=== PATIENT | female | born 1945 | race Caucasian/White ===

== ENCOUNTER 2017-03-14 00:31 | Emergency (ER) | payer MEDICARE ==
[~2017-03-14] VITALS: Ht 162.6 cm; Wt 64.5 kg
[~2017-03-14 00:31] MED LIST: ALTOPREV20 MG PO; CEPHALEXIN500 MG PO; DILTIAZEM60 MG PO; HYDROCO/APAP1 T11 PO; METOPROLOL SUCC25 MG PO; PLAVIX75 MG PO; PRILOSEC40 MG PO
[2017-03-14] MEDS ORDERED: CELEXA40 M1 PO (01:24)
[2017-03-14 02:12] LABS: HEMATOCRIT 43.5 % (37.0-47.0); HEMOGLOBIN 14.7 g/dl (12.0-16.0); IMMATURE GRANULOCYTES 0.5 % (0.0-1.0); MEAN CELL VOLUME 92.2 fL CALC (80.0-100.0); MEAN CORPUSCULAR HGB 31.1 pG CALC (26.0-32.0); MEAN CORPUSCULAR HGB CONC 33.8 g/L CALC (32.0-36.0); NEUT# 10.12 thou/uL (2.00-7.15); RED BLOOD COUNT 4.72 mill/uL (4.20-5.60)
[2017-03-14 02:19] LABS: ALBUMIN 4.2 g/dL (3.2-5.0); ALKALINE PHOSPHATASE 126 u/l (38-126); ANION GAP 18 (6-22 (CALC)); BILIRUBIN, TOTAL 0.7 mg/dL (0.0-1.4); BUN 21 mg/dL (8-23); BUN/CREATININE RATIO 17 (12-20 (CALC)); CALCIUM 9.1 mg/dL (8.4-10.2); CARBON DIOXIDE 24 mmol/l (22-30); CHLORIDE 107 mmol/l (95-108); CREATININE 1.2 mg/dL (0.5-1.0); GFR 44 ML/MIN (>=60 (CALC)); GFR FOR AFR.AMER. 54 ML/MIN (>=60 (CALC)); GLUCOSE 117 mg/dL (82-115); POTASSIUM 3.1 mmol/l (3.5-5.1); PROTHROMBIN TIME 10.5 SECONDS (9.0-12.5); SGOT/AST 33 u/l (9-36); SGPT/ALT 23 u/l (11-66); SODIUM 146 mmol/l (137-146); TOTAL PROTEIN 7.8 g/dL (6.3-8.2)
[2017-03-14 02:32] LABS: MYOGLOBIN 53 ng/mL (0 - 62)
[2017-03-14 02:56] LABS: INFLUENZA A NONE DETECTED (NONE DETECT); INFLUENZA B NONE DETECTED (NONE DETECT)
--- NOTE | 2017-03-14 03:12 | NUR ---
BREATHING TREATMENT GIVEN. BREATHING TECH FOR GOOD DEPOSITION TO THE LUNGS.
[2017-03-14] MEDS ORDERED: Levaquin PO (04:59)
[2017-03-14 05:15] VITALS: BP 151/64
== END 2017-03-14 05:15 | disposition home or self-care (01) ==
LOC: ED 00:31
PROVIDERS: Emergency Medicine
DX: J44.1 Chronic obstructive pulmonary disease with (acute) exacerbation (principal); I12.9 Hypertensive chronic kidney disease with stage 1 through stage 4 chronic kidney disease, or unspecified chronic kidney disease; N18.4 Chronic kidney disease, stage 4 (severe); E78.5 Hyperlipidemia, unspecified; I25.10 Atherosclerotic heart disease of native coronary artery without angina pectoris; K21.9 Gastro-esophageal reflux disease without esophagitis; G89.29 Other chronic pain; M54.9 Dorsalgia, unspecified; F17.210 Nicotine dependence, cigarettes, uncomplicated; R06.02 Shortness of breath; R94.31 Abnormal electrocardiogram [ECG] [EKG]

== ENCOUNTER 2018-11-22 18:43 | Observation (INO) | payer MEDICARE ==
[~2018-11-22] VITALS: Ht 162.6 cm; Wt 63.7 kg
[~2018-11-22 18:43] MED LIST changes: +AMITRIPTYLIN25 MG PO; +CELEXA40 M1 PO; +CIPRO XR500 MG PO; +Levaquin PO; +PHENERGAN25 MG RE
--- NOTE | 2018-11-22 18:54 | NUR ---
TO TX ROOM VIA W/C
--- NOTE | 2018-11-22 19:13 | NUR ---
PT SEEN HERE FOR SAME COMPLAINT LAST NIGHT, STATES JUST DOESNT FEEL ANY BETTER
--- NOTE | 2018-11-22 19:15 | NUR ---
PT HAD RX FROM LAST NIGHT FOR ZOFRAN BUT DID NOT INFECTIOUS DISEASE TECHNICIAN THE RX TODAY SO HAS HAD NO ZOFRAN TODAY.
[2018-11-22 19:49] LABS: HEMATOCRIT 41.2 % (37.0-47.0); HEMOGLOBIN 13.5 g/dl (12.0-16.0); IMMATURE GRANULOCYTES 0.6 % (0.0-5.0); MEAN CELL VOLUME 95.6 fL CALC (80.0-100.0); MEAN CORPUSCULAR HGB 31.3 pG CALC (26.0-32.0); MEAN CORPUSCULAR HGB CONC 32.8 g/L CALC (32.0-36.0); NEUT# 13.99 thou/uL (2.00-7.15); RED BLOOD COUNT 4.31 mill/uL (4.20-5.60); RED CELL DISTRI WIDTH 13.8 % (11.5-15.5)
[2018-11-22 20:09] LABS: ALBUMIN 3.5 g/dL (3.2-5.0); BILIRUBIN, TOTAL 0.6 mg/dL (0.0-1.4); CREATININE 1.4 mg/dL (0.5-1.0); POTASSIUM 4.2 mmol/l (3.5-5.1); TOTAL PROTEIN 6.2 g/dL (6.3-8.2)
--- NOTE | 2018-11-22 20:14 | NUR ---
NO VOMITING SINCE ARRIVAL, WARM BLANKET GIVEN, PT RESTING QUIETLY WITH AT BEDSIDE
--- NOTE | 2018-11-22 20:37 | NUR ---
IV FLUIDS INFUSING, SMALL AMOUNT OF LIQUID VOMIT. NOTIFIED.
--- NOTE | 2018-11-22 21:48 | NUR ---
MED SURG UNABLE TO TAKE REPORT AT THIS TIME, WILL CALL BACK SOON POSSIBLE
--- NOTE | 2018-11-22 21:55 | NUR ---
DR. CANADA CALLED TO PLACE ORDERS
--- NOTE | 2018-11-22 21:55 | NUR ---
REPORT GIVEN TO MED SURG FOR CONTINUATION OF CARE.
--- NOTE | 2018-11-22 22:08 | NUR ---
REPORT GIVEN TO JEFFREY KUO
--- NOTE | 2018-11-22 22:12 | NUR ---
TO MS VIA STRETCHER
[2018-11-22 22:20] VITALS: BP 184/82
--- NOTE | 2018-11-22 22:20 | NUR ---
PT ARRIVED TO THE FLOOR VIA STRETCHER ACCOMPANIED BY ED NURSE. AIDE IS IN W/PT AT THIS TIME.
--- NOTE | 2018-11-22 22:30 | NUR ---
PT ARRIVED TO THE FLOOR ACCOMPANIED BY ED NURSE. PT WAS VOMITING GREEN EMESIS SHE ARRIVED TO THE FLOOR, MISSING THE EMESIS BAG IN HER HAND HITTING THE FLOOR OF HALLWAY AND ROOM, GOWN,LINENS. PT CLEANED AND PROVIDED CLEAN LINENS AND GOWN. PT WEIGHTED AND V/S OBTAINED, PROVIDED WET CLOTH AND ADDITIONAL EMESIS BAGS. PT VOMITED 3X JUST WE WERE ATTEMPTING GETTING HER SETTLED. WILL MEDICATE ORDERS BECOME AVAILABLE.
--- NOTE | 2018-11-23 00:18 | NUR ---
PT MEDICATED FOR NAUSEA/VOMITING AT THIS TIME AND PROVIDED MOUTH SWABS FOR COMFORT. DENIES WET WASH CLOTH AT THIS TIME. LIGHTS AND ROOM FIXED FOR PT COMFORT/REQUESTS. CALL LIGHT AT BEDSIDE AND PT REORIENTED TO IT'S USE.
[2018-11-23 01:53] VITALS: BP 176/93
--- NOTE | 2018-11-23 03:57 | NUR ---
PT MEDICATED FOR NAUSEA AT THIS TIME. PT APPEARED TO BE RESTING SOME I ENTERED THE ROOM AWOKE TO MY VOICE AND QUICKLY RETURNED TO SLEEP/EYES CLOSED.
[2018-11-23 04:24] VITALS: BP 126/67
--- NOTE | 2018-11-23 05:30 | NUR ---
PT SLEEPING SOUNDLY AT THIS TIME. WILL CONTINUE TO MONITOR. CALL LIGHT AT SIDE.
[2018-11-23 07:58] VITALS: BP 159/67
--- NOTE | 2018-11-23 07:58 | NUR ---
ASSESSMENT IS COMPLETED: IV SITE IS FREE FROM REDNESS OR EDEMA. HR IS REG,PULSES ARE STRONG X4, ABD IS SOFT WITH ACTIVE BS. BREATH SOUNDS ARE CLEAR, BILATERALLY. CONTINEU TO OSBERVE AND MONITOR.
--- NOTE | 2018-11-23 12:10 | NUR ---
PT HAS BEEN VOMITING APPROX 30 TO 50 CC OF BILE CONTINUE TO OBSERVE AND MONITOR.
--- NOTE | 2018-11-23 13:00 | NUR ---
IN TO VISIT WITH PT.
--- NOTE | 2018-11-23 13:30 | NUR ---
EKG COMPLETED, PT TOLERATING CLEAR LIQUIDS AT THIS TIME.
--- NOTE | 2018-11-23 16:03 | NUR ---
PT CONTINUES TO VOMIT. CLEAR LIQUID. APPROX 50 CC EACH TIME .
--- NOTE | 2018-11-23 16:10 | NUR ---
PT IS RELAXING IN BED CONITNUES TO HAVE NAUSEA, AND SOME VOMITING NOTED. BILE COLOR. CONTINUE TO OBSERVE AND MONITOR.
[2018-11-23 16:15] VITALS: BP 162/75
--- NOTE | 2018-11-23 19:00 | NUR ---
RECEIVED REPORT FROM NURSE GUEVARA PATIENT NOTED TO BE VOMITING GREEN FLUID, HAYDENFRAN LAST GIVEN @ 1813, WILL CONTINUE TO MONITOR.
[2018-11-23 19:07] VITALS: BP 172/88
--- NOTE | 2018-11-23 20:28 | NUR ---
CALLED DR. VILLARREAL AND INFORMED THAT PATIENT CONTINUES ON VOMITING GREEN FLUID, AND THAT ZOFRAN WAS LAST GIVEN AT 1813, AND THAT PATIENT WAS REFUSING PHENERGAN RECTAL SUPPOSITORY, WITH ORDERS MADE TO START ON REGLAN IV.
[2018-11-24] VITALS: BP 152/86
--- NOTE | 2018-11-24 00:49 | NUR ---
PATIENT CURRENTLY RESTING IN BED, AWAKEN EARLIER ASSISTED TO THE BATHROOM, ASSISTED BACK IN BED, NO VOMITTING EPISODE AFTER IV REGLAN.
[2018-11-24 03:57] VITALS: BP 133/61
--- NOTE | 2018-11-24 04:30 | NUR ---
PATIENT RESTING IN BED, EYES CLOSED NO DISCOMFORTS NOTED AT THIS TIME, CALL LIGHT AT REACH
[2018-11-24 05:17] LABS: HEMATOCRIT 39.2 % (37.0-47.0); HEMOGLOBIN 12.7 g/dl (12.0-16.0); MEAN CELL VOLUME 96.3 fL CALC (80.0-100.0); MEAN CORPUSCULAR HGB 31.2 pG CALC (26.0-32.0); MEAN CORPUSCULAR HGB CONC 32.4 g/L CALC (32.0-36.0); RED BLOOD COUNT 4.07 mill/uL (4.20-5.60); RED CELL DISTRI WIDTH 13.6 % (11.5-15.5)
[2018-11-24 05:36] LABS: ANION GAP 13 (6-22 (CALC)); BUN 15 mg/dL (8-23); BUN/CREATININE RATIO 16 (12-20 (CALC)); CARBON DIOXIDE 22 mmol/l (22-30); CHLORIDE 111 mmol/l (95-108); CREATININE 0.9 mg/dL (0.5-1.0); GFR > 60 ML/MIN (>=60 (CALC)); GFR FOR AFR.AMER. > 60 ML/MIN (>=60 (CALC)); POTASSIUM 3.7 mmol/l (3.5-5.1); SODIUM 142 mmol/l (137-146)
--- NOTE | 2018-11-24 07:05 | NUR ---
PT REPORT RECIEVED FROM AYAAN ZIMMER. PT RESTING IN BED. NO S/S OF DISTRESS. CALL LIGHT IN REACH. WILL CONTINUE TO MONITOR.
[2018-11-24 07:44] VITALS: BP 160/82
--- NOTE | 2018-11-24 07:44 | NUR ---
PT A/O X3. SPEECH IS CLEAR. RESP EVEN AND UNLABORED. PT DENIES ANY N/V. LUNG SOUNDS CLEAR. O2 @2L ON PT. BOWEL SOUNDS HYPOACTIVE X4. STRONG RADIAL, WEAK PEDAL PULSES. @20 LAC NS @100. SITE APPEARS HEALTHY. SKIN INTACT. PT DENIES ANY PAIN OR NEEDS. POC DISCUSSED. SAFETY PRECAUTIONS IN PLACE. CALL LIGHT IN REACH. WILL CONTINUE TO MONITOR.
[2018-11-24 07:50] VITALS: BP 160/82
[2018-11-24] MEDS ORDERED: ZOFRAN ODT4 MG PO (12:31)
--- NOTE | 2018-11-24 12:36 | NUR ---
PT EATING LUNCH. NO C/O PAIN OR NEEDS. CALL LIGHT IN REACH. WILL CONTINUE TO MONITOR.
--- NOTE | 2018-11-24 13:50 | NUR ---
D/C INSTRUCTIONS DISCUSSED W/ PT. PT STATES UNDERSTANDING. IV REMOVED. CATHETER INTACT. PT AWAITING CABLE STRETCHER AND TESTER TO BE TRANSPORTED DOWNSTAIRS.
--- NOTE | 2018-11-24 13:55 | NUR ---
Discharge instructions given. Patient verbalizes understanding of same. Discharged in stable condition via Wheelchair to Home with family. All belongings sent with pt.
== END 2018-11-24 13:54 | disposition home or self-care (01) ==
LOC: ED 18:43 → MS2 20:24 → ED-I 20:24 → ED 20:38 → MS2 23:51
PROVIDERS: Family Medicine; ADMIT Internal Medicine; ATTEND Internal Medicine
DX: R11.2 Nausea with vomiting, unspecified (principal); I12.9 Hypertensive chronic kidney disease with stage 1 through stage 4 chronic kidney disease, or unspecified chronic kidney disease; N18.3 Chronic kidney disease, stage 3 (moderate); J44.9 Chronic obstructive pulmonary disease, unspecified; I73.9 Peripheral vascular disease, unspecified; F32.9 Major depressive disorder, single episode, unspecified; K59.00 Constipation, unspecified; F17.210 Nicotine dependence, cigarettes, uncomplicated; Z79.02 Long term (current) use of antithrombotics/antiplatelets

== ENCOUNTER 2018-12-04 09:55 | Inpatient (IN) | payer MEDICARE ==
[~2018-12-04] VITALS: Ht 162.6 cm; Wt 61.7 kg
[~2018-12-04 09:55] MED LIST changes: +ZOFRAN ODT4 MG PO
--- NOTE | 2018-12-04 10:02 | NUR ---
PT TO ROOM VIA WC
--- NOTE | 2018-12-04 10:30 | NUR ---
PT RESTING IN HIGH FOWLERRS. RESP EASY. REPORTS 10/10 NECK PAIN, REPORTS STARTED PRIOR TO FALL. REPORTS BELIEVE IS FROM HER MATTRESS AND HOW SHES BEEN SLEEPING.
--- NOTE | 2018-12-04 10:40 | NUR ---
PT MEDICAIATED FOR COMPLAINTS OF 10/10 HEAD AND NECK PAIN. C COLLAR APPLIED INSTRUCTED. WILL CONTINUE TO MONITOR.
[2018-12-04 10:41] LABS: HEMATOCRIT 39.3 % (37.0-47.0); HEMOGLOBIN 13.2 g/dl (12.0-16.0); IMMATURE GRANULOCYTES 0.9 % (0.0-5.0); MEAN CELL VOLUME 92.5 fL CALC (80.0-100.0); MEAN CORPUSCULAR HGB 31.1 pG CALC (26.0-32.0); MEAN CORPUSCULAR HGB CONC 33.6 g/L CALC (32.0-36.0); NEUT# 16.21 thou/uL (2.00-7.15); RED BLOOD COUNT 4.25 mill/uL (4.20-5.60); RED CELL DISTRI WIDTH 13.5 % (11.5-15.5)
[2018-12-04 10:56] LABS: ALBUMIN 3.7 g/dL (3.2-5.0); ALKALINE PHOSPHATASE 114 u/l (38-126); ANION GAP 16 (6-22 (CALC)); BILIRUBIN, TOTAL 0.9 mg/dL (0.0-1.4); BUN 12 mg/dL (8-23); BUN/CREATININE RATIO 11 (12-20 (CALC)); CARBON DIOXIDE 23 mmol/l (22-30); CHLORIDE 105 mmol/l (95-108); GFR 54 ML/MIN (>=60 (CALC)); GFR FOR AFR.AMER. > 60 ML/MIN (>=60 (CALC)); LIPASE 65 u/l (23-300); POTASSIUM 3.6 mmol/l (3.5-5.1); SGOT/AST 17 u/l (9-36); SODIUM 141 mmol/l (137-146); TOTAL PROTEIN 6.5 g/dL (6.3-8.2)
--- NOTE | 2018-12-04 10:58 | NUR ---
PT RETURNED FROM XRAY. IVF INITIATED. DENEIS ANY OTHER NEEDS.
--- NOTE | 2018-12-04 11:03 | NUR ---
MOUTH SWABS GIVEN. AT BEDSIDE.
--- NOTE | 2018-12-04 11:49 | NUR ---
pt resting with eyes closed. resp easy. no signs of pain or distress. iv site patent.
--- NOTE | 2018-12-04 12:57 | NUR ---
pt continues to rest comfortably, has been using mouth swabs intermittently. No complaints of nausea, no episodes of diarrhea. Only complaints of tenderness to scalp upon palpation. no brusing noted. denies any needs.
--- NOTE | 2018-12-04 13:47 | NUR ---
REPORT CALLED TO GUSTAVO HOOK. NO QUESTIONS OFFERED AT THIS TIME.
--- NOTE | 2018-12-04 13:50 | NUR ---
PT TRANSPORTED TO MS2 VIA STRETCHER ACCOMPIANED BY AYAAN BLAIR. PT AMBULATED FROM STRETCHER TO BED W/ ASSISTANCE. VS DONE. PT A/O X3. SPEECH IS CLEAR. EXERTIONAL SOB NOTED. PT C/O SHARP POSTERIOR HEAD PAIN. 9 OUT OF 10 ON PAIN SCALE. MEDICATED W/ ONE LORTAB 5/325. SLIGHT NAUSEA AT THIS TIME. LIGHTS DIMMED FOR COMFORT. ICE PACK APPLIED TO POSTERIOR HEAD. RESP EVEN AND UNLABORED. LUNG SOUNDS DIMINISHED. O2 @2L ON PT. BOWEL SOUNDS ACTIVE X4. STRONG RADIAL, WEAK PEDAL PULSES. TRACE OF EDEMA TO BILATERAL FEET. SKIN INTACT. PT DENIES ANY FURTHER NEEDS. POC DISCUSSED. SAFETY PRECAUTIONS IN PLACE. CALL LIGHT IN REACH. WILL CONTINUE TO MONITOR.
--- NOTE | 2018-12-04 13:55 | NUR ---
PT TRANSPORTED TO [facility] ROOM 281 VIA STRETCHER WITH TELE IN PLACE. NURSE PATRICIAA AT BEDSIDE TO RECEIVE PT. ALL BELONGINGS SENT.
[2018-12-04 14:08] VITALS: BP 92/57
--- NOTE | 2018-12-04 15:14 | NUR ---
DR. JAMA IN TO SEE PT
[2018-12-04 15:56] VITALS: BP 103/58
[2018-12-04 16:09] LABS: URINE BILIRUBIN - DIPSTICK NEGATIVE (NEGATIVE); URINE BLOOD DIPSTICK NEGATIVE (NEGATIVE); URINE COLOR YELLOW; URINE GLUCOSE - DIPSTICK NEGATIVE (NEGATIVE); URINE KETONE NEGATIVE (NEGATIVE); URINE LEUK ESTERASE TRACE (NEGATIVE); URINE NITRITE - DIPSTICK NEGATIVE (Negative); URINE PROTEIN - DIPSTICK TRACE mg/dL (NEG-TRACE)
[2018-12-04 16:12] VITALS: BP 142/80
[2018-12-04 19:23] VITALS: BP 113/66
--- NOTE | 2018-12-04 19:40 | NUR ---
REPORT RECEIVED FROM DAY NURSE. PT SLEEPING AT THIS TIME. NO S/O DISTRESS NOTED AND CALL LIGHT IS AT SIDE.
--- NOTE | 2018-12-04 21:45 | NUR ---
PT MEDICATED AND ASSESSED, REPORTS HEAD PAIN IN BACK OF HEAD AND NECK, COOLPACK PROVIDED FOR COMFORT AND PT MEDICATED FOR PAIN. NEURO'S INTACT, MODERATE EQUAL PARTY HOST/HOSTESS, NO S/O WOUND TO BACK OF HEAD, POST CATS REPORTED/PUPILS 2 NON-REACTIVE EQUAL, FACE IS SEMETRICAL, SKIN IS INTACT, LOCX3, CALL LIGHT AT BEDSIDE. WILL CONTINUE TO MONITOR AND PT HAS BEEN ENCOURAGED TO CALL NEEDS ARISE.
--- NOTE | 2018-12-04 23:45 | NUR ---
PT SLEEPING SOUNDLY AT THIS TIME. TURNED LIGHTS DOWN, TV ON LOW. NO S/O DISTRESS NOTED. CALL LIGHT AT BEDSIDE.
[2018-12-04 23:58] VITALS: BP 92/61
[2018-12-05] VITALS (10 sets, daily range): BP systolic 70–153; BP diastolic 42–81
--- NOTE | 2018-12-05 03:48 | NUR ---
PT IV FLUIDS REPLENISHED. PT IS SLEEPING SOUNDLY, BUT AWOKE TO MY VOICE AND ANSWERED MY QUESTIONS APPROPRIATELY/LOCX3. PT QUICKLY BACK TO SLEEP. NO S/O DISTRESS NOTED. CALL LIGHT AT SIDE, LIGHTS ON LOW AND TV ON LOW.
--- NOTE | 2018-12-05 04:48 | NUR ---
PT BEGAN VOMITING AND COUGHING YELLOW THICK MUCUS. 02SAT IN THE 70'S, PT COACHED TO BREATHING NC INCREASE TO 76% HOLDING. RESP CALLED AND PLACED PT ON HIGH FLOW NC@6L SATS @92% NOW. RESP 34, HR 118, PT AFEBRILE. PHYSICIAN NOTIFIED/WILL AWAIT RETURN CALL FROM PHYS FOR ORDERS.
[2018-12-05 05:06] LABS: HEMATOCRIT 37.4 % (37.0-47.0); IMMATURE GRANULOCYTES 0.9 % (0.0-5.0); MEAN CELL VOLUME 97.1 fL CALC (80.0-100.0); MEAN CORPUSCULAR HGB 31.2 pG CALC (26.0-32.0); MEAN CORPUSCULAR HGB CONC 32.1 g/L CALC (32.0-36.0); NEUT# 20.5 thou/uL (2.00-7.15); RED BLOOD COUNT 3.85 mill/uL (4.20-5.60)
--- NOTE | 2018-12-05 05:15 | NUR ---
ED PHYSICIAN NOTIFIED OF PT STATUS AND ORDERS RECEIVED FOR LASIX 20 IV, ABG'S, CHEST XRAY.
[2018-12-05 05:33] LABS: ALBUMIN 3.3 g/dL (3.2-5.0); BILIRUBIN, TOTAL 0.7 mg/dL (0.0-1.4); CREATININE 1.2 mg/dL (0.5-1.0); POTASSIUM 3.7 mmol/l (3.5-5.1); TOTAL PROTEIN 5.9 g/dL (6.3-8.2)
[2018-12-05 05:40] LABS: MAGNESIUM 0.9 mg/dL (1.6-2.3)
--- NOTE | 2018-12-05 06:02 | NUR ---
LAB NOTIFIED OF CRITICAL MAGNESIUM 0.9. ATTEMPTS WERE MADE TO NOTIFY DUMPSTER DRIVER PHYSICIAN.
--- NOTE | 2018-12-05 06:22 | NUR ---
UNABLE TO REACH PHYSICIAN INDEPENDENT PRODUCER, ED PHYSICIAN NOTIFIED OF PT STATUS, HR 140'S AND PT SHAKING, ABG RESULTS,CHEST XRAY RESULTS, AND PT STATUS. DUONEB ORDER RECEIVED. WILL CONTINUE TO MONITOR. RESPIRATORY AND SUPERVISOR ORCHARD HAVE BEEN IN W/PT AND ARE AT BEDSIDE MONITORING.
--- NOTE | 2018-12-05 06:48 | NUR ---
CALLED TO PT ROOM FOR BREATHING TX. PT RR 22 HR 135 SPO2 94% ON 4LHFNC. PT GIVEN ONE DUO TX. RN AND COOK CAMP EVELIA RAMIREZ.
--- NOTE | 2018-12-05 07:27 | NUR ---
PT REPORT RECIEVED FROM AYAAN HINKLE. PT DISORIENTED. SHAKING. RESP LABORED. NONPRODUCTIVE COUGH NOTED. O2 @6L. PT READING 93% PULSE 134. TEMP OF 101.4. BP READING 153/81. DR. BANGURA PUTTING IN NEW ORDERS AT THIS TIME. LUNG SOUNDS DIMINISHED. BOWEL SOUNDS ACTIVE X4. STRONG RADIAL AND PEDAL PULSES. #20 LFA LR @KVO. SITE APPEARS HEALTHY. SKIN INTACT. PT DENIES ANY PAIN AT THIS TIME. CALL LIGHT IN REACH. BED ALARM NOW ON DUE TO INTERMITTENT CONFUSION. WILL CONTINUE TO MONITOR.
--- NOTE | 2018-12-05 07:40 | NUR ---
REPORT GIVEN TO DAY NURSE AND CALL MADE TO PHYSICIAN CARPET CLEANER BY BOTH. PHYSICIAN NOTIFIED OF PT STATUS. PT NOW DISORIENTED, SHAKY AND FEBRILE @101.2. NO NEW ORDERS RECEIVED AT THIS TIME. ROOM COOLED, COVERS REMOVED AND ICEPACKS PLACED. WILL CONTINUE TO MONITOR.
--- NOTE | 2018-12-05 09:31 | NUR ---
PT APPEARS MORE CALM. MINIMAL TO NO SHAKING AT THIS TIME. O2 @3L ON PT. STATING 91%. HR 99 BPM. TEMP 99.1. HOB ELEVATED. TWO NEW IV'S STARTED #22 RAC AND #22 LAC. BOTH SITES APPEAR HEALTHY. 500 ML BOLUS AND MAGNESIUM RUNNING AT THIS TIME. WITH LEVAQUIN TO CONTINUE INFUSING AFTER BOLUS. WILL CONTINUE TO MONITOR.
--- NOTE | 2018-12-05 09:41 | NUR ---
CALLED REGARDING LACTIC READING 2. NOTIFIED MD OF CURRENT ORDERS IN PLACE. NO NEW ORDERS AT THIS TIME. STATES HE WILL BE IN TO SEE PT.
--- NOTE | 2018-12-05 10:17 | NUR ---
FLUID BOLUS STOPPED PER DR. JAMA. PT RECIEVED 302ML.
--- NOTE | 2018-12-05 11:01 | NUR ---
PT BP READING 70/48, PULSE 79. MD NOTIFIED. 500 ML BOLUS ORDERED. WILL CONTINUE TO MONITOR.
--- NOTE | 2018-12-05 12:08 | NUR ---
PT BP READING 88/58, PULSE 78. NOTIFIED. STATES TO MONITOR PT BP EVERY 30 MIN. NO NEW ORDERS. WILL CONTINUE TO MONITOR.
--- NOTE | 2018-12-05 13:26 | NUR ---
MD MADE AWARE OF PT BP READING 79/42. ANOTHER 500 ML BOLUS PER MD ORDER. PT O2 @4L; 91%. RESP 21. WILL CONTINUE TO MONITOR.
--- NOTE | 2018-12-05 14:31 | NUR ---
AFTER 500 ML BOLUS PT BP 98/60 MANUALLY, PULSE 78. O2 @4 1/2; READING BETWEEN 89-90%. RESP EVEN AND UNLABORED. PT APPEARS TO BE IN NO DISTRESS AT THIS TIME.
--- NOTE | 2018-12-05 14:50 | NUR ---
PT TRANSPORTED DOWN TO [facility] VIA STRETCHER ACCOMPIANED BY POSTIE AND CASI LEE
--- NOTE | 2018-12-05 15:00 | NUR ---
PT ARRIVED TO ICU BED 3 VIA STRETCHER FROM MS2 BED 281. PT A&0X3, ABLE TO MAKE NEEDS KNOWN. RT AT BEDSIDE TO INITIATE BIPAP, SETTINGS /, HUMDITY 30% PER RT. BEDSIDE REPORT GIVEN, ASSESSMENT COMPLETED. PT TRANSFERRED FROM STRETCHER TO BED WITH X3 ASSIST. PT ORIENTED TO UNIT, BED, AND CALL LIGHT. CALL LIGHT IN REACH, WILL MONITOR.
--- NOTE | 2018-12-05 15:25 | NUR ---
CALLED UNIT, CODE RECIEVED, UPDATE GIVEN.
--- NOTE | 2018-12-05 15:37 | NUR ---
pt report given to scott hubbard
--- NOTE | 2018-12-05 16:04 | NUR ---
ARRIVED AT BEDSIDE.
--- NOTE | 2018-12-05 17:00 | NUR ---
DIETARY ON UNIT, BIPAP PLACED ON STANDBY, DINNER TRAY SET UP. PT SA02@93% ON 5LPM VIA N/C. NO S/S OF N/V OR ASPIRATIONS.
--- NOTE | 2018-12-05 17:30 | NUR ---
BIPAP REPLACED. PT TOLERATED WELL.
--- NOTE | 2018-12-05 18:20 | NUR ---
RT AT BEDSIDE FOR ASSESSMENT AND TO DISCUSS PLAN OF CARE.
--- NOTE | 2018-12-05 19:05 | NUR ---
REPORT GIVEN BY MELISSA KUO. PATIENT ALERT AND ORIENTED. RESP EVEN AND UNLABORED, BIPAP IN PLACE AT 30%.NSR ON TELEMETRY AND HYPOTENSIVE.IV SITES: 22 L AC AND 22 R AC BOTH SALINE LOCKED. ASSESMENT COMPLETE AT THIS TIME.FALL PRECAUTIONS IN PLACE. PATIENT INFORMED TO CALL WITH ANY QUESTIONS OR CONCERNS.
--- NOTE | 2018-12-05 19:26 | NUR ---
BIPAP CHANGED FROM 30% TO 40% DUE TO LOW O2 SAT
--- NOTE | 2018-12-05 19:34 | NUR ---
PATIENT INFORMED TO NOT REMOVE THE BIPAP MASK AT THIS TIME. SINCE EVERYTIME IT IS REMOVED HER O2 SAT DROP. SHE STATED THAT SHE NEED TO DRINK BECAUSE HER MOUTH IS DRY AND IF SHE CAN'T DRINK SHE WANTS TO GO HOME. INFORMED PATIENT IT IS BEST IF SHE STAYS AT THE HOSPITAL BECAUSE SHE IS HAVING A HARD TIME BREATHING.
--- NOTE | 2018-12-05 19:35 | NUR ---
Reeceived patient on bipap with 30% oxygen. Spo2 86% on 30%. Increaesd fio2 to 40%. Spo2 on 40% 93%. Will continue to monitorthe patient.
--- NOTE | 2018-12-05 22:15 | NUR ---
PATIENT GIVEN PAIN MEDICATION PER MD ORDERS AND AN ICE PACK
--- NOTE | 2018-12-05 22:16 | NUR ---
HS MEDICATIONS GIVEN, PATIENT TOLERATED WELL. CARDIZEM HELD DUE TO LOW BLOOD PRESSURE.
[2018-12-06] VITALS (23 sets, daily range): BP systolic 77–150; BP diastolic 43–71
--- NOTE | 2018-12-06 00:03 | NUR ---
patient resting with eyes closed. resp even and unlabored. no s/s of distress noted.
--- NOTE | 2018-12-06 01:20 | NUR ---
PATIENT REQUESTING TO TAKE BIPAP MASK OFF AND WEAR NC. O2 SAT DROPPING TO LOW 80%. PATIENT INFORMED THAT IT IS IMPORTANT TO KEEP MASK ON SO HER O2 SAT IS ABOVE 90%.
--- NOTE | 2018-12-06 01:34 | NUR ---
RT CALLED TO PLACE BIPAP BACK ON PATIENT AFTER O2 SAT STAYED BELOW 90%, PATIENT AGREED TO WEARING THE MASK AGAIN.
--- NOTE | 2018-12-06 01:36 | NUR ---
BIPAP O2 CHANGED FROM 40% TO 45%
--- NOTE | 2018-12-06 03:21 | NUR ---
RT CALLED PATIENT'S O2 SAT 85-89% ON BIPAP WITH 45% OXYGEN. RT CHANGED BIPAP SETTINGS FROM 45% TO 50%.
--- NOTE | 2018-12-06 03:33 | NUR ---
WITH 45% FIO2, PATIENT'S SPO2 STAYED ON 88. INCREASED THE PRESSURE TO 18/9 AND FIO2 TO 50% TO ACHIEVE AN SPO2 HIGHER THAN 90. WILL CONTINUE TO MONITOR THE PATIENT.
--- NOTE | 2018-12-06 06:23 | NUR ---
MORNING ANTIBIOTIC GIVEN. PATIENT TOLERATED WELL.
--- NOTE | 2018-12-06 07:00 | NUR ---
awake in bed; no apparent distress noted at this time; assessment completed; pt alert and oriented; requesting off bipap for water; pt offers no other complaints or concerns; deny pain/n/v; resp even and unlabored; sob noted with minimal exertion; lungs clear anterior; coarse with wheezing noted to left base; skin color wnl; bipap intact and maintained with settings of 18/9, rate 16, FiO2 of 50%; moist loose cough noted; sputum to be collected; hr reg; strong pulses; no edema noted; sr on monitor; abd soft with bs present; no bm noted per story writer; pt incont/saturated is lg dk yellow urine; assisted to bsc; voiding 150 kirsten urine without pain or burning; adult brief placed per request; #22 in lac/ #22 in rac flushed and patent; no redness or edema noted at sites; plan of care/ am meds explained; story writer assist with bath/ complete linen change; call light within reach; will continue to monitor
--- NOTE | 2018-12-06 07:30 | NUR ---
RT Alexander at bedside; pt converted to 10L NC hi-matt o2; o2 sat ranging 93-95%; no resp distress noted; po fluids/breakfast provided; pt with productive cough/ thick yellow sputum collected; will continue to monitor
--- NOTE | 2018-12-06 08:10 | NUR ---
awake in bed; offers complaints of headache; o2 per nc at 10L hi matt/ humidified; sr on monitor; iv's intact; tylenol offered for and refused; pt admits to taking "4 to 5 Lortab at one time" at home; states she take so many because they do not work; pt also states "they give me that shot and it's gone"; will medicate with dilaudid; call light within reach; will continue to monitor
--- NOTE | 2018-12-06 09:00 | NUR ---
o2 sat low 90s; pt place don 12L humidified o2 per RT Alexander; no apparent resp distress noted; will continue to monitor
--- NOTE | 2018-12-06 10:03 | NUR ---
pt awake in bed; conversing without spouse; no apparent distress noted; sr on monitor; call light within reach; will continue to monitor
--- NOTE | 2018-12-06 10:55 | NUR ---
Dr Rojo present at bedside; request pt to be placed on newer bed; MD request pt to go back on bipap; approves for pt to be off bipap only for meals; will continue to monitor
[2018-12-06 11:02] LABS: IMMATURE GRANULOCYTES 1.4 % (0.0-5.0); MEAN CELL VOLUME 95.6 fL CALC (80.0-100.0); MEAN CORPUSCULAR HGB 31.3 pG CALC (26.0-32.0); MEAN CORPUSCULAR HGB CONC 32.7 g/L CALC (32.0-36.0); NEUT# 19.8 thou/uL (2.00-7.15); RED BLOOD COUNT 3.2 mill/uL (4.20-5.60); RED CELL DISTRI WIDTH 13.9 % (11.5-15.5)
[2018-12-06 11:03] LABS: HEMATOCRIT 30.6 % (37.0-47.0)
[2018-12-06 11:22] LABS: CREATININE 1.5 mg/dL (0.5-1.0); POTASSIUM 3.3 mmol/l (3.5-5.1)
--- NOTE | 2018-12-06 11:22 | NUR ---
MD notified per this curriculum writer iker was held due to low bp; appreciative of decision; bed changed to weigh bed as per MD request; o2 per NC; bipap to be reapplied after meal; will continue to monitor
--- NOTE | 2018-12-06 11:27 | NUR ---
Dr Rojo notified per this journalists and other writers of pt request for solid food; orders received;
--- NOTE | 2018-12-06 12:02 | NUR ---
BP 86/58; st 105; ns bolus infusing without complication; no redness or edema noted at site; o2 per nc; pt with complaints of nausea after eating lunch; medicated as per orders; st on monitor; declined toileting; bipap will be reapplied as per MD orders after nausea has subsided; no acute resp distress noted at current; o2 per nc at 12L hi matt humidified; repositioned; pt with complaints of headache and neck pain; will medicate; call light within reach; will continue to monitor
--- NOTE | 2018-12-06 13:49 | NUR ---
Dr Rojo called per contract writer; updated on pt status including: pt now very restless and anxious; pt is tachycardiac with freq pac and pvc; current bp 115/69, hr 110; orders to be placed;
--- NOTE | 2018-12-06 14:04 | NUR ---
Dr Rojo called this proposal lead writer; orders have been placed; order received to administer am dose Toprol
--- NOTE | 2018-12-06 16:02 | NUR ---
resting with eyes closed; no apparent distress noted; bipap intact with 60% fIO2; st on monitor; spouse present at bedside; call light within reach; will continue to monitor
--- NOTE | 2018-12-06 16:13 | NUR ---
awake up to bsc; sob with exertion noted; bipap maintained; will continue to monitor
--- NOTE | 2018-12-06 17:07 | NUR ---
pt converted to 12L humidified o2 via NC; o2 sat 96%;
--- NOTE | 2018-12-06 18:08 | NUR ---
awake in bed; pt noted with confusion/ easily reoriented; offers no complaints; iv intact and patent; no redness or edema noted at site; st pac/pvc on monitor; bed in lowest position; call light within reach;
--- NOTE | 2018-12-06 18:31 | NUR ---
RT Sami notified to place pt on bipap;
--- NOTE | 2018-12-06 18:50 | NUR ---
Dr Rojo called per resume writer; resume writer informed MD pt is now on bipap with 60% FiO2; o2 sat low 90s; resume writer updated MD, pt has been increased from 30% FiO2 to 60% FiO2 since initiation of bipap/RT continues to titrate O2 to maintained oxygenation; MD also informed, pt now with increased confusion and becoming combative with staff; ABG questioned; code status reviewed with MD; orders placed and MD to be notified of results
--- NOTE | 2018-12-06 18:55 | NUR ---
PATIENT IS AGITATED. TUBE CAME OFF MASK , DAYSHIFT NURSE AND I WENT IN ROOM TO PUT TUBE BACK ON MASK, PATIENT REFUSED AT FIRST. BIPAP BACK ON PROPERLY.
--- NOTE | 2018-12-06 19:20 | NUR ---
PATIENT SITTING ON EDGE OF BED, COOPERATIVE NOW. ALERT TO TIME, PLACE, SELF, AND WHY SHE WAS ADMITTED. ON CONTINUOUS BIPAP WHICH SHE KEEPS TUGGING AND PULLING. NO SKIN ISSUES PRESENT. R AND L ANTERIOR UPPER LUNG SOUNDS ARE COARSE, CLEAR ON UPPER POSTERIOR LUNGS AND DIMINISHED AT POSTERIOR LUNG BASES. ABDOMEN IS SOFT AND ACTIVE BS. SKIN IS DRY AND INTACT. L AND R AC IV'S INTACT AND FLUSHING. NS INFUSING AT 75 ML/HR. TAKEN OFF BIPAP FOR A MOMENT TO DRINK WATER, BACK ON SAFELY. ST ON TELEMETRY. RADIAL PUKSES STRONG, PEDAL PULSES PRESENT AND WEAK. I ALSO ASKED PATIENT ABOUT HER CODE STATUS AND EXPLAINED TO HER IT WAS NOT NOTED ON HER CHART, ASKED IF SHE WANTED TO HAVE CPR AND INTUBATION, AND EVEYRTHING TO KEEP HER ALIVE, SHE RESPONDED YES EACH TIME. EDUCATED HER ON PLAN OF CARE, CALL LIGHT. CALL LIGHT WITHIN REACH. WILL CONTINUE TO MONITOR.
--- NOTE | 2018-12-06 19:30 | NUR ---
RT CALLED AND NOTIFIED DR JAMA OF ABG RESULTS. I SPOKE TO DR JAMA AND INFORMED OF MY NURSING ASSESSMENT. DR JAMA ORDERED STAT PORTABLE CXR, XRAY HAS BEEN CALLED TO NOTIFY STAT.
--- NOTE | 2018-12-06 19:38 | NUR ---
HOSPICE COMMUNITY LIAISON IN ROOM, I HAVE NOTIFIED AND EXPLAINED TO PATIENT OF REASON FOR EXAM.
--- NOTE | 2018-12-06 19:47 | NUR ---
REBEKAH GARCIA HAS LEFT, PATIENT NOW AGITATED AND CONFUSED, I ASKED HER IF SHE KNEW WHERE SHE WAS AT, SHE REPORTED SHE DID NOT AND ASKED WHERE SHE WAS AT, I HAVE EXPLAINED TO HER WHY SHE IS IN ICU AND WHY THESE TESTS ARE BEING PERFORMED.
--- NOTE | 2018-12-06 20:00 | NUR ---
DR JAMA CALLED HERE AND I SPOKE TO HIM, HE REPORTS CXR SHOWS FLUID IN LUNGS, HE WILL BE PUTTING ORDERS FOR BUMEX, DANGELO CATHETER.
--- NOTE | 2018-12-06 20:10 | NUR ---
IN ROOM WITH PATIENT TO NOTIFY HER OF CURRENT PLAN OF CARE REGARDING MEDICATIONS AND TEST RESULTS. PATIENT IS REFUSING EVERYTHING. NURSE STAFF AND I IN ROOM TO GET HER COMFORTABLE BACK INTO BED SINCE SHE HAS BEEN SITTING AT EDGE OF BED. LAC IV IS LEAKING, ASSESSED AND HAS BEEN SAFELY DISCONTINUED. BED ALARM ON. CALL LIGHT WITHIN REACH. PATIENT HAS BEEN WANTIG TO BE CALLED AND SAYS "I NEED HIM NOW." I HAVE EXPLAINED TO HER THAT I WILL CALL HIM BUT SHE NEEDS TO COOPERATE SO THAT I CAN BE ABLE TO CALL HIM.
--- NOTE | 2018-12-06 20:34 | NUR ---
I HAVE CALLED HER RIOS HUBER TO NOTIFY HIM OF PATIENT'S CURRENT SITUATION. REPORTS HE WILL BE COMING TO SEE HER.
--- NOTE | 2018-12-06 21:01 | NUR ---
BED ALARM BEEPING, PATIENT TRYING TO GET UP, DID NOT USE CALL LIGHT EVEN THOUGH EDUCATED HOW TO USE IT. PATIENT ASSISTED TO BSC. VOIDED 350 ML. URINE YELOOW AND CLOUDY. PATIENT SAFELY TRANSFERRED BACK TO BED, CALL LIGHT WITHIN REACH.
--- NOTE | 2018-12-06 21:03 | NUR ---
IS SITTING AT BEDSIDE IN HIS WALKER.
--- NOTE | 2018-12-06 21:32 | NUR ---
MARY AT BEDSIDE, BOTH EDUCATED ON PATIENT'S BEDTIME MEDICATIONS, PATIENT AGREES TO TAKE MEDICATIONS. BIPAP OFF FOR MEDICATIONS, NOW BACK ON SAFELY. BED ALARM ON, CALL LIGHT WITHIN REACH.
--- NOTE | 2018-12-06 21:43 | NUR ---
REPORTS SHE ALWAYS TAKES MEDICATION TO SLEEP, PATIENT HAS SLEEP MEDICATION ON EMAR TO GIVE, PATIENT AGREES TO TAKE.
--- NOTE | 2018-12-06 22:10 | NUR ---
CAME UP TO NURSE'S STATION AND REPORTS PATIENT TOLD HIM WE ARE TRYING TO KILL HER, REPORTS THAT SHE PROBABLY THINKS THAT BECAUSE A COUPLE YEARS AGO HE WAS "LEFT TO ." I ASSURED I REORIENT HER AND REASSURE HER EACH TIME. REPORTS HE HAS HER WATCH AND IS TAKING IT HOME. PATIENT IS NOW SLEEPING, CALL LIGHT WITHIN REACH.
--- NOTE | 2018-12-06 23:30 | NUR ---
PATIENT WAS REORIENTED AND REASSURED, PATIENT ALSO AGREED TO HAVE DANGELO CATHETER PLACED. PATIENT WAS COOPERATIVE FOR WHOLE PROCEDURE, SHE HAD A HOME PULL UP BRIEF ON WHICH WAS DAMP. PATIENT WAS HELPED WITH REPOSITIONING, CALL LIGHT WITHIN REACH.
[2018-12-07] VITALS (24 sets, daily range): BP systolic 104–161; BP diastolic 56–81
--- NOTE | 2018-12-07 00:15 | NUR ---
PATIENT REPEATEDLY PULLS OFF O2 PULSE OXIMETRY AFTER BEING EDUCATED ABOUT IT EACH TIME. SHE ALSO CONTINUES TO PULL OFF MASK. SHE IS REORIENTED AND REASSURED EACH TIME. CALL LIGHT WITHIN REACH. WILL CONTINUE TO MONITOR.
--- NOTE | 2018-12-07 01:13 | NUR ---
PATIENT REPEATEDLY TRIES TO GET OUT OF BED SAYING, "I NEED TO PEE," I HAVE EXPLAINED TO HER SHE HAS CATHETER INTO HER BLADDER. PATIENT ALSO PULLS OFF MASK, PULLS OFF PULSE OXIMETRY. PATIENT WAS TAKEN TO BSC EARLIER BECAUSE SHE REPORTED SHE NEEDED "TO POOP." SHOBHA DID NOT HAVE A BM AND WAS SAFELY TRANSFERRED BACK INTO BED. CALL LIGHT WITHIN REACH.
--- NOTE | 2018-12-07 02:18 | NUR ---
PATIENT PULLING OFF PULSE OXIMETRY, I ATTEMPTED TO PLACE IT BACK ON HER FINGER SHE BECAME COMBATIVE. REORIENTED. CALL LIGHT WITHIN REACH.
--- NOTE | 2018-12-07 04:22 | NUR ---
PATIENT IS CONFUSED, IS AWAKE AND HAS BEEN AWAKE FOR MOST OF THE NIGHT. SHE HAS BEEN ON CONTINUOUS BIPAP, SETTINGS HAVE NOT CHANGED, FIO2 60% ALL NIGHT. BED ALARM ON. DESATS QUICKLY WHEN SHE PULLS HER BIPAP MASK OFF. CALL LIGHT WITHIN REACH.
[2018-12-07 05:27] LABS: HEMATOCRIT 34.8 % (37.0-47.0); HEMOGLOBIN 11.2 g/dl (12.0-16.0); IMMATURE GRANULOCYTES 1.8 % (0.0-5.0); MEAN CELL VOLUME 96.7 fL CALC (80.0-100.0); MEAN CORPUSCULAR HGB 31.1 pG CALC (26.0-32.0); MEAN CORPUSCULAR HGB CONC 32.2 g/L CALC (32.0-36.0); PLATELET COUNT 302 thou/uL (130-400); RED CELL DISTRI WIDTH 13.8 % (11.5-15.5)
[2018-12-07 05:38] LABS: MANUAL DIFFERENTIAL YES
--- NOTE | 2018-12-07 06:05 | NUR ---
CALLED AND SPOKE TO DR JAMA TO NOTIFY OF PATIENT'S CRITICAL WBC 31.3, ALSO NOTIFIED HIM OF PATIENT'S CONFUSION ALL NIGHT, SHE HAS BEEN ON CONTINUOUS BIPAP NONLABORED BREATHING AND HAS BEEN PULLING MASK OFF THROUGH THE WHOLE NIGHT. THIS MORNING PATIENT ALSO PULLED HER IV OFF, NEW ONE HAS BEEN PLACED. NOW RESTING WITH EYES CLOSED. CALL LIGHT WITHIN REACH.
[2018-12-07 06:08] LABS: BILIRUBIN, TOTAL 0.7 mg/dL (0.0-1.4); CREATININE 1.3 mg/dL (0.5-1.0); POTASSIUM 3.3 mmol/l (3.5-5.1); TOTAL PROTEIN 5.6 g/dL (6.3-8.2)
--- NOTE | 2018-12-07 06:15 | NUR ---
PATIENT GETS UP ALL OF A SUDDEN AND WANTS TO GET UP TO PEE, SHE IS REMINDED SHE HAS A CATHETER ON. PATIENT HAS BEEN ASSISTED TWICE TO THE BSC THIS SHIFT BECAUSE SHE ASSURES SHE HAS TO "POOP," BOTH TIMES SHE DOES NOT HAVE A BM AND SAYS, "I'M CONSTIPATED.."
[2018-12-07 06:23] LABS: MAGNESIUM 1.8 mg/dL (1.6-2.3)
--- NOTE | 2018-12-07 07:00 | NUR ---
resting in bed with eyes closed/ appears to be sleeping; bipap intact and maintained with 60% FiO2; will continue to monitor
--- NOTE | 2018-12-07 08:00 | NUR ---
pt awake in bed; no apparent distress noted; assessment completed at this time; pt alert to person and time only; pt inquires when did we put her in the basement; confusion and agitation noted; pt becomes more agitated when staff attempt to reorient pt; pt offers no complaints; deny pain; no n/v noted; resp even and unlabored; lungs clear upper anterior, coarse bilat bases; moist loose cough noted; skin color wnl; bipap converted to hi flow humidified o2 via nc at 15L per RT Alexander; hr reg; pulses present; no edema noted; sr on monitor; abd soft with bs present; no bm noted per television script writer; morrison to gravity draining sediment yellow urine; #22 flushed and patent to lfa; no redness or edema noted at site; plan of care/ am meds explained; bed alarm activated for pt safety; call light within reach; will continue to monitor
--- NOTE | 2018-12-07 08:20 | NUR ---
spouse called this jingle writer for update on pt condition; update provided
--- NOTE | 2018-12-07 09:30 | NUR ---
[id number]: spouse present at bedside; updated on condition and plan of care
--- NOTE | 2018-12-07 10:05 | NUR ---
resting in bed with eyes closed; easily aroused; offers no complaints; calm and cooperative with staff; bipap intact with settings of 18/9, rate 16, FiO2 60%; iv flushed and patent; morrison to gravity; repositions self; bed alarm activated for pt safety; will continue to monitor
--- NOTE | 2018-12-07 10:20 | NUR ---
Dr Rojo called this conventional underwriter; update provided; orders received for stat portable xray
--- NOTE | 2018-12-07 10:32 | NUR ---
XRAY present at bedside
--- NOTE | 2018-12-07 10:37 | NUR ---
awake; confused; removing bipap machine; attempting to climb out of bed; typewriter assembly and parts inspector at bedside to pt safety
--- NOTE | 2018-12-07 11:40 | NUR ---
family x3 (daughter Sarah) present at bedside; updated on condition and plan of care
--- NOTE | 2018-12-07 11:50 | NUR ---
Dr Rojo present at bedside to assess pt and discuss plan care; plan of care explained to both patient and family; pt will possibly be transferred to [facility] tomorrow for bronch; MD request o2 sat to remain between 88-92%; MD has given permission for pt to have "breaks" from bipap; pt is calm and cooperative; alert and oriented; follow commands; sr on monitor; morrison to gravity; will continue to monitor
--- NOTE | 2018-12-07 12:10 | NUR ---
pt converted to NC per RT; no apparent resp distress noted; sr on monitor; iv intact; lunch warmed and provided; will continue to monitor
--- NOTE | 2018-12-07 12:40 | NUR ---
RT NOTIFIED OF DECREASED O2 SATS. PT PLACED BACK ON BIPAP FOR O2 SATS OF 74-77%.
--- NOTE | 2018-12-07 13:35 | NUR ---
awake in bed; confused; uncooperative with nursing care; pt attempting to climb out of bed; removing bipap; pt quickly desat to 63%; bipap reapplied; bath offered with refusal; pericare with catheter care done at this time; dried blood noted to da care from pt pulling at catheter; cath strap reapplied; repositioned; increased visual observation for pt safety; will continue to monitor
--- NOTE | 2018-12-07 14:15 | NUR ---
intermittent resting noted; bipap adjusted d/t air leak; pt becomes easily agitated with nursing staff; repositions self; sr on monitor; morrison to gravity; will continue to monitor
--- NOTE | 2018-12-07 15:58 | NUR ---
resting in bed with eyes closed; no apparent distress noted; resp even and unlabored; sr/pvc on monitor; morrison to gravity; iv intact; o2 sat 95% with 50% FiO2; bed alarm activated for pt safety; call light within reach; will continue to monitor
--- NOTE | 2018-12-07 17:41 | NUR ---
daughter Clare called this technical proposal writer; passcode verified; update provided
--- NOTE | 2018-12-07 17:58 | NUR ---
resting in bed with eyes closed; no apparent distress noted; resp even and unlabored; iv intact; sr pvc on monitor; bipap maintained with 50% FiO2 with o2 sat of 96%; morrison to gravity; bed alarm activated for pt safety; call light within reach
--- NOTE | 2018-12-07 18:25 | NUR ---
spouse at bedside; spouse informed to take necklace home upon departure
--- NOTE | 2018-12-07 19:10 | NUR ---
HAS LEFT BEDSIDE. PATIENT HOB 50 DEGREES. SHE IS ON NASAL CANNULA 14L/MIN HUMIDIFIED, SATS 90%-94%, SHE NEEDS TO BE REMINDED TO KEEP NASAL CANNULA ON I WENT IN THE ROOM SHE HAD IT OVER HER HEAD. PATIENT IS DROWSY, ABLE TO ANSWER ALL QUESTIONS, SHE IS ALERT AND ORIENTED TO PERSON, TIME, PLACE, AND WHY SHE IS HERE. EYES ARE PERRL, BRISK, 3 MM. SHIPWRIGHT SUPERVISOR ARE STRONG. RADIAL PULSES STRONG. SKIN IS DRY AND INTACT. BS ARE PRESENT, ABDOMEN IS SOFT. NO EDEMA PRESENT. PEDL PULSES PRESENT BUT WEAK. LFA 22 GAUGE IV INTACT, SALINE LOCKED. SHE ATE MINIMAL DINNER. DANGELO IS INTACT, DRAINS YELOW, SEDIMENT URINE. REQUESTS JELLO AND APPLESAUCE FOR HER MEALS, I OFFERED TO BRING HER JELLO AND APPLESAUCE BUT SHE REFUSED. TEMPERATURE IS 99.1. I EDUCATED HER ON PLAN OF CARE FOR TONIGHT. CALL LIGHT WITHIN REACH. BED ALARM ON.
--- NOTE | 2018-12-07 19:48 | NUR ---
I HAVE WEANED PATIENT'S OXYGEN TO 5 L/MIN HUMIDIFIED NASAL CANNULA AND SHE IS MAINTAINING SAT OF 92%.
--- NOTE | 2018-12-07 20:58 | NUR ---
PATIENT OXYGEN INCREASED TO 12 L/MIN, SATS 88%, O2 SAT DECREASED AFTER SHE TOOK HER BEDTIME MEDICATIONS WITH A SIP OF WATER, NO COUGHING NOTED AFTER, SHE WAS ABLE TO TOLERATE WITHOUT DIFFICULTY.
--- NOTE | 2018-12-07 22:00 | NUR ---
PATIENT WITH HOB 45 DEGREES ON NASAL CANNULA AT 12 L/MIN HUMIDIFIED. RESTING WITH EYES CLOSED. EASILY AROUSES. CALL LIGHT WITHIN REACH. BED ALARM ON.
--- NOTE | 2018-12-07 23:13 | NUR ---
RT IN ROOM, BIPAP BEING APPLIED.
--- NOTE | 2018-12-07 23:21 | NUR ---
BIPAP FIO2 50 %, PATIENT SATS 92 %. RESTING WITH EYES CLOSED. WILL CONTINUE TO MONITIOR.
[2018-12-08] VITALS (21 sets, daily range): BP systolic 117–186; BP diastolic 60–91
--- NOTE | 2018-12-08 00:25 | NUR ---
PATIENT CURRENTLY RESTING WITH EYES CLOSED. ON BIPAP, FIO2 50 %. NO ACUTE DISTRESS NOTED. SATS 91 %. AFEBRILE. CALL LIGHT WITHIN REACH. BED ALARM ON.
--- NOTE | 2018-12-08 03:21 | NUR ---
PATIENT TAKEN OFF OF BIPAP PER REQUEST, "JUST GIVE ME A COUPLE OF MINUTES, MY NOSE IS SORE." I HAVE PLACED HER ON NASAL CANNULA AT 12L/MIN HUMIDIFIED.
--- NOTE | 2018-12-08 03:32 | NUR ---
PATIENT SATS BETWEEN 70'S TO 80'S % ON NASAL CANNULA, PATIENT WAS EDUCATED ABOUT USING BIPAP FOR NOW TO MAINTAIN WNL O2 SATS. NOW ON BIPAP AND MAINTAINS O2 SATS IN 90'S%. PATIENT IS COOPERATIVE AND AGREES WITH PLAN OF CARE. CALL LIGHT WITHIN REACH.
--- NOTE | 2018-12-08 05:06 | NUR ---
BOAT CAPTAIN IN ROOM. PATIENT DECIDES TO TAKE OFF BIPAP MASK OFF, SHE REQUESTS FOR IT TO BE OFF FOR A FEW MINUTES, I HAVE PLACE HER NASAL CANNULA ON, 12L/MIN H.
[2018-12-08 05:17] LABS: HEMATOCRIT 33.9 % (37.0-47.0); IMMATURE GRANULOCYTES 1.6 % (0.0-5.0); MEAN CELL VOLUME 93.6 fL CALC (80.0-100.0); MEAN CORPUSCULAR HGB 30.4 pG CALC (26.0-32.0); MEAN CORPUSCULAR HGB CONC 32.4 g/L CALC (32.0-36.0); NEUT# 17.42 thou/uL (2.00-7.15); RED BLOOD COUNT 3.62 mill/uL (4.20-5.60); RED CELL DISTRI WIDTH 13.7 % (11.5-15.5)
--- NOTE | 2018-12-08 05:17 | NUR ---
PATIENT SATS 94 % ON 4 L/MIN NASAL CANNULA H. NO ACUTE DISTRESS SHOWN.
[2018-12-08 05:37] LABS: ALBUMIN 2.7 g/dL (3.2-5.0); BILIRUBIN, TOTAL 0.7 mg/dL (0.0-1.4); CREATININE 1.1 mg/dL (0.5-1.0); MAGNESIUM 1.7 mg/dL (1.6-2.3); POTASSIUM 3.1 mmol/l (3.5-5.1); TOTAL PROTEIN 5.3 g/dL (6.3-8.2)
--- NOTE | 2018-12-08 06:39 | NUR ---
PATIENT STARTING TO DESAT INTO 70'S %, PLACED HER BACK ON BIPAP 50% FIO2, SHE COOPERATES WITH DIRECTIONS. HOB 30 DEGREES. NO ACUTE DISTRESS SHOWN. CALL LIGHT WITHIN REACH.
--- NOTE | 2018-12-08 06:45 | NUR ---
RECVD REPORT FROM AYAAN MICHELLE AT START OF SHIFT.
--- NOTE | 2018-12-08 07:15 | NUR ---
PT APPEARS TO BE SLEEPING. NO S/S OF DISTRESS. ON BIPAP. VSS. WILL CONTINUE TO MONITOR.
--- NOTE | 2018-12-08 08:15 | NUR ---
RT @BEDSIDE FOR ASSESSMENT.
--- NOTE | 2018-12-08 08:15 | NUR ---
PT A&O X3. PT BECOMES COFUSSED, WILL REORIENT NEEDED. BILATERAL ORGANIZATIONAL DEVELOPMENT MANAGER STRONG. SPEECH MILDLY SLURRED BUT MIGHT BE NORMAL FOR PT. EYES PERRLA @3. PT IS IN ST WITH PVC/STAMP COLLECTOR ON TELE. BREATHING EVEN/LABORED AND WORSENS ON EXERTION. NC 12L HUMIDIFIED. CRACKLES PRESENT IN ALL 5 LOBE QUADRENTS. ON BIPA: 18/03, RATE 14, FIO2 @50% STRONG RADIAL PULSES x2. LACEY. SKIN WARM, DRY, PINK , INTACT. ACTIVE BOWEL SOUNDS, ABD SOFT/NONTENDER. DENIED N/V. NO BM SINCE 12/04/18. CATH DANGELO IN PLACE. DANGELO STRAP ON LEFT THIGH. URINE IS YELLOW AND CLEAR. NO EDEMA PRESENT. STRONG PEDAL PULSES x4. CAPILLARY REFILL -3 SECS. PT IN BED, IN SEMIFOWLERS. PT COMES FROM HOME, USES 2L NC AT HOME TO SLEEP. LIVES WITH . +TOB. CALL LIGHT WITHIN REACH. TABLE WITHIN REACH. BED ALARM IN PLACE D/T REPORT OF OCCASSIONAL CONFUSION. WILL CONTINUE TO MONITOR. BELT BUILDER HELPER STUDENT ASSISTED WITH ASSESSMENT & NOTES.
--- NOTE | 2018-12-08 08:17 | NUR ---
PT REMOVED FROM BIPAP FOR BREAKFAST, PLACED ON 12L HUMIDIFIED O2 NC BY RT.
--- NOTE | 2018-12-08 08:20 | NUR ---
DAUGHTER, TRE, CALLED FOR UPDATE.
--- NOTE | 2018-12-08 09:16 | NUR ---
RT @BEDSIDE FOR BREATHING TREATMENT.
--- NOTE | 2018-12-08 09:38 | NUR ---
DR JAMA CALLED FOR UPDATE ON PT.
--- NOTE | 2018-12-08 09:46 | NUR ---
RT @BEDSIDE FOR ASSESSMENT.
--- NOTE | 2018-12-08 10:04 | NUR ---
PT/ REQUEST NO INFORMATION BE GIVEN TO HER DAUGHTER MADI IF SHE CALLS. PT STATES SHE "DOESNT WANT HER TO KNOW SHE IS HERE OR EVEN ALIVE."
--- NOTE | 2018-12-08 10:51 | NUR ---
PTS O2 STATS DROPPED TO 80% PT FELL ASLEEP. PT PLACED BACK ON BIPAP. RT @BEDSIDE TO CONFIRM PROPER FIT.
--- NOTE | 2018-12-08 11:42 | NUR ---
LEFT ICU, STATING HE HAS HIS OWN DR MATA TODAY. HE WILL CALL LATER TO SEE IF MD HAS MADE ROUNDS YET. PT REMAINS ON BIPAP.
--- NOTE | 2018-12-08 11:51 | NUR ---
DR JAMA @BEDSIDE WITH RT. PT REMOVED FROM BIPAP, PLACED BACK ON NC.
--- NOTE | 2018-12-08 11:52 | NUR ---
DR JAMA AWARE THAT PT WENT DOWN TO 80% ON 12L HUNIDIFIED GA.
--- NOTE | 2018-12-08 11:54 | NUR ---
PT SATING 86-89% ON 12L HUMIDIFIED O2. MD REQUEST RT GET ANOTHER METHOD TO GET A MORE RELIABLE READING. OTHER READING IS SAME PREVIOUS.
--- NOTE | 2018-12-08 11:58 | NUR ---
PT SITTING UP IN HIGH FOWLERS, EATING LUNCH ON NC.
--- NOTE | 2018-12-08 12:23 | NUR ---
PT PLACED BACK ON BIPAP, O2 STATS IN 60'S. DR JAMA NOTIFIED. RT DROPPED BIPAP TO 18/03 RATE 14 @40%.
--- NOTE | 2018-12-08 12:32 | NUR ---
DR MUNOZ @BEDSIDE.
--- NOTE | 2018-12-08 12:50 | NUR ---
CD'S REQUESTED FROM RADIOLOGY FOR POSSIBLE TRANSFER.
--- NOTE | 2018-12-08 12:59 | NUR ---
PER RADIOLOGY, PORT XR IS DOWN, PT WILL NEED TO COME DOWN TO RADIOLOGY FOR CXR. WAITING FOR DIRECTION FROM DR JAMA.
--- NOTE | 2018-12-08 13:08 | NUR ---
MD @BEDSIDE TO INFORM PT OF TRANSFER.
--- NOTE | 2018-12-08 13:26 | NUR ---
RT @BEDSIDE, ASSESSING. O2 96% ON BIPAP. SETTINGS CHANGED TO 18/9, RATE 16, FIO2 35% D/T MD REQUEST STATS B/W 88-92%. PT RESTING, APPEARS COMFORTABLE. VSS. CALLBELL W/IN REACH. WILL CONTINUE TO MONITOR.
--- NOTE | 2018-12-08 13:36 | NUR ---
CALLED TO GET STATUS UPDATE. REFUSES TRANSFER TO [facility], STATING THEIR INSURANCE CHANGED AND [facility] IS NOT IN THEIR NETWORK ANYMORE. CM AWARE.
--- NOTE | 2018-12-08 14:25 | NUR ---
#22 LFA IV SITE BUBBLED WHEN FLUSHED PRIOR TO GIVING MEDICATION. NO REDNESS OR DISCOMFORT. IV DC'D, TIP INTACT, PRESSURE DRESSING AND ICE PACK APPLIED. NEW IV #20 RAC STARTED. PT REMAINS ON BIPAP. VSS. WILL CONTINUE TO MONITOR UNTIL TRANSFER.
--- NOTE | 2018-12-08 15:13 | NUR ---
PT REMAINS RESTING IN BED WITH BIPAP ON. BREATHING EVEN. VSS. WILL CONTINUE TO MONITOR WHILE WAITING ON TRANSFER.
--- NOTE | 2018-12-08 15:52 | NUR ---
RT @BEDSIDE. BIPAP SETTINGS REMAIN AT 18/9, RATE 16, FIO2 @35%. PT REMAINS SLEEPING. VSS.
--- NOTE | 2018-12-08 17:00 | NUR ---
PORT XR @BEDSIDE FOR CXR. PT RETURNED TO SLEEP AFTER COMPLETION.
--- NOTE | 2018-12-08 17:15 | NUR ---
RT @BEDSIDE FOR BREATHING TREATMENTS.
--- NOTE | 2018-12-08 17:36 | NUR ---
PT SITTING UP IN BED, EATING DINNER. ON 12L HUMIDIFIED NC.
--- NOTE | 2018-12-08 18:05 | NUR ---
PT SPILLED DRINKS ON TABLE/FLOOR. HOUSEKEEPING CALLED TO ROOM.
--- NOTE | 2018-12-08 19:12 | NUR ---
BEDSIDE REPORT RECEIVED FROM AYAAN GALLARDO. PT SITTING UP IN BED CURRENTLY ON OXYGEN 12L VIA NC; RESIRATIONS EVEN AND UNLABORED AT REST.
--- NOTE | 2018-12-08 19:30 | NUR ---
ASSESSMENT COMPLETE; PT ALERT AND ORIENTED TO PERSON AND PLACE. STATES, "I DON'T KNOW WHATS GOING ON, WHY AM I HERE?" SITUATION EXPLAINED TO PT AND ALL QUESTIONS ANSWERED TO SATISFACTION. OXYGEN SATURATION 96% ON THE NC AT 12L. PT DENIES PAIN CURRENTLY. RESPIRATIONS EVEN AND UNLABROED; NON PRODUCTIVE COUGH NOTED. LUNG SOUNDS ARE CLEAR/ DIMINISHED. PLAN OF CARE REVIEWED INCLUDING PLANNED TRANSFER TO [facility]. PT ENCOURAGED TO [facility]. STATES UNDERSTANDING AND REQUESTS [facility]. SAFETY MEASURES IN PLACE. CALL LIGHT WITHIN REACH.
--- NOTE | 2018-12-08 20:28 | NUR ---
CALLED FOR UPDATE; REQUESTED TO BE UPDATED ON ROOM # WHEN WE KNOW WHERE SHE IS BEING TRANSPORTED. RESPIRATORY AT BEDSIDE. VS STABLE AND AFEBRILE.
--- NOTE | 2018-12-08 21:43 | NUR ---
RT AT BEDSIDE FOR BREATHING TREATMENT.
--- NOTE | 2018-12-08 22:40 | NUR ---
ROOM NUMBER RECEIVED FROM [facility]; PT TO BE TRANSPORTED TO [facility] ROOM 4404. [facility] NOTIFIED; ETA 45 MINUTES.
--- NOTE | 2018-12-08 23:29 | NUR ---
[facility] ARRIVED. REPORT GIVEN AND PT ASSISTED TO STRETCHER.
--- NOTE | 2018-12-08 23:33 | NUR ---
CALLED AND UPDATED ON TRANSPORT AND NEW ROOM NUMBER AT [facility].
--- NOTE | 2018-12-08 23:49 | NUR ---
Discharge instructions given. Patient verbalizes understanding of same. Discharged in stable condition via Medical Transport to [facility] room 4404 with [facility] staff. All belongings sent with pt.
--- NOTE | 2018-12-08 23:51 | NUR ---
REPORT GIVEN TO AYAAN TOWNSEND.
== END 2018-12-08 23:35 | DRG 177 ==
LOC: ED 09:55 → ED-I 11:39 → ED 11:39 → ED-I 11:39 → ED 12:42 → MS2 12:43 → ICU 12-05 15:42
PROVIDERS: Family Medicine; ADMIT Internal Medicine Nephrology; ATTEND Internal Medicine Nephrology
PROC: 5A09357 Assistance with Respiratory Ventilation, Less than 24 Consecutive Hours, Continuous Positive Airway Pressure (ICD-10-PCS; principal; 2018-12-05)
PROC: 0T9B70Z Drainage of Bladder with Drainage Device, Via Natural or Artificial Opening (ICD-10-PCS; 2018-12-06)
DX: J69.0 Pneumonitis due to inhalation of food and vomit (principal); J96.02 Acute respiratory failure with hypercapnia; J96.01 Acute respiratory failure with hypoxia; J44.1 Chronic obstructive pulmonary disease with (acute) exacerbation; N17.9 Acute kidney failure, unspecified; N39.0 Urinary tract infection, site not specified; J44.0 Chronic obstructive pulmonary disease with (acute) lower respiratory infection; J15.0 Pneumonia due to Klebsiella pneumoniae; E86.0 Dehydration; K52.9 Noninfective gastroenteritis and colitis, unspecified; I12.9 Hypertensive chronic kidney disease with stage 1 through stage 4 chronic kidney disease, or unspecified chronic kidney disease; N18.3 Chronic kidney disease, stage 3 (moderate); E87.6 Hypokalemia; I95.9 Hypotension, unspecified; D64.9 Anemia, unspecified; I73.9 Peripheral vascular disease, unspecified; F41.9 Anxiety disorder, unspecified; H40.9 Unspecified glaucoma; F17.210 Nicotine dependence, cigarettes, uncomplicated; B96.20 Unspecified Escherichia coli [E. coli] as the cause of diseases classified elsewhere; R74.0 Nonspecific elevation of levels of transaminase and lactic acid dehydrogenase [LDH]; Z79.02 Long term (current) use of antithrombotics/antiplatelets; Z95.820 Peripheral vascular angioplasty status with implants and grafts; Z90.49 Acquired absence of other specified parts of digestive tract
CPT/HCPCS: G0378; J0692; J3475

== ENCOUNTER 2019-07-07 | Emergency (ER) | payer MEDICARE ==
[2019-07-07 09:51] LABS: HEMOGLOBIN 13.4 g/dl (12.0-16.0); IMMATURE GRANULOCYTES 0.4 % (0.0-5.0); MEAN CELL VOLUME 89.4 fL CALC (80.0-100.0); MEAN CORPUSCULAR HGB 29.6 pG CALC (26.0-32.0); MEAN CORPUSCULAR HGB CONC 33.1 g/L CALC (32.0-36.0); NEUT# 7.69 thou/uL (2.00-7.15); RED BLOOD COUNT 4.53 mill/uL (4.20-5.60); RED CELL DISTRI WIDTH 14.3 % (11.5-15.5)
[2019-07-07 09:52] LABS: HEMATOCRIT 40.5 % (37.0-47.0)
[2019-07-07 10:10] LABS: ALBUMIN 3.8 g/dL (3.2-5.0); BILIRUBIN, TOTAL 0.5 mg/dL (0.0-1.4); CREATININE 1.2 mg/dL (0.5-1.0); POTASSIUM 4.1 mmol/l (3.5-5.1); TOTAL PROTEIN 6.9 g/dL (6.3-8.2)
[2019-07-07] MEDS ORDERED: TRAMADOL HYDROC50 MG PO (11:23)
== END 2019-07-07 11:33 | disposition home or self-care (01) ==
PROVIDERS: Family Medicine
DX: S20.211A Contusion of right front wall of thorax, initial encounter (principal); I12.9 Hypertensive chronic kidney disease with stage 1 through stage 4 chronic kidney disease, or unspecified chronic kidney disease; N18.4 Chronic kidney disease, stage 4 (severe); J44.9 Chronic obstructive pulmonary disease, unspecified; W01.190A Fall on same level from slipping, tripping and stumbling with subsequent striking against furniture, initial encounter; Y92.009 Unspecified place in unspecified non-institutional (private) residence as the place of occurrence of the external cause

== ENCOUNTER 2020-04-01 17:31 | Emergency (ER) | payer MEDICARE ==
[~2020-04-01 17:31] MED LIST changes: +TRAMADOL HYDROC50 MG PO
== END 2020-04-01 18:04 | disposition left against medical advice (07) ==
LOC: ED 17:31 → LWOBS 18:04
DX: Z53.21 Procedure and treatment not carried out due to patient leaving prior to being seen by health care provider (principal)

== ENCOUNTER 2020-06-27 13:13 | Emergency (ER) | payer MEDICARE ==
[~2020-06-27] VITALS: Ht 162.6 cm; Wt 59.0 kg
[2020-06-27] MEDS ORDERED: TOPROL XL50 MG PO (14:31)
[2020-06-27] MEDS ORDERED: LORTAB 5/3255 MG PO (14:32)
[2020-06-27 15:00] LABS: HEMATOCRIT 38.3 % (37.0-47.0); HEMOGLOBIN 12.4 g/dl (12.0-16.0); IMMATURE GRANULOCYTES 0.6 % (0.0-5.0); MEAN CELL VOLUME 89.9 fL CALC (80.0-100.0); MEAN CORPUSCULAR HGB 29.1 pG CALC (26.0-32.0); MEAN CORPUSCULAR HGB CONC 32.4 g/dL CAL (32.0-36.0); NEUT# 9.85 thou/uL (2.00-7.15); RED BLOOD COUNT 4.26 mill/uL (4.20-5.60); RED CELL DISTRI WIDTH 15.3 % (11.5-15.5)
[2020-06-27 15:32] LABS: ALBUMIN 3.9 g/dL (3.2-5.0); BILIRUBIN, TOTAL 0.5 mg/dL (0.0-1.4); CREATININE 1.8 mg/dL (0.5-1.0); POTASSIUM 3.5 mmol/l (3.5-5.1); TOTAL PROTEIN 7.3 g/dL (6.3-8.2)
[2020-06-27 15:33] LABS: URINE BILIRUBIN - DIPSTICK NEGATIVE (NEGATIVE); URINE COLOR YELLOW; URINE GLUCOSE - DIPSTICK NEGATIVE (NEGATIVE); URINE KETONE NEGATIVE (NEGATIVE); URINE PROTEIN - DIPSTICK TRACE mg/dL (NEG-TRACE); URINE SPECIFIC GRAVITY >=1.030; URINE UROBILINOGEN - DIPSTICK 0.2 E.U./dL (0.2)
[2020-06-27 15:48] LABS: URINE LEUK ESTERASE SMALL (NEGATIVE); URINE NITRITE - DIPSTICK POSITIVE (Negative)
[2020-06-27 15:51] LABS: URINE BACTERIA RARE hpf; URINE BLOOD DIPSTICK NEGATIVE (NEGATIVE); URINE EPITHELIAL CELLS RARE EPI/hpf (0-FEW); URINE RBC 0-2 RBC/hpf (0-5); URINE YEAST FEW hpf
[2020-06-27 17:45] VITALS: BP 142/63
--- NOTE | 2020-06-29 08:14 | NUR ---
FAXED URINE C&S RESULTS TO [facility] [phone], REPORTED TO PTS NURSE LILIANA
== END 2020-06-27 17:45 ==
LOC: ED 13:13
PROVIDERS: Emergency Medicine
DX: S12.500A Unspecified displaced fracture of sixth cervical vertebra, initial encounter for closed fracture (principal); S32.591A Other specified fracture of right pubis, initial encounter for closed fracture; N39.0 Urinary tract infection, site not specified; S00.11XA Contusion of right eyelid and periocular area, initial encounter; I12.9 Hypertensive chronic kidney disease with stage 1 through stage 4 chronic kidney disease, or unspecified chronic kidney disease; N18.4 Chronic kidney disease, stage 4 (severe); J44.9 Chronic obstructive pulmonary disease, unspecified; F17.210 Nicotine dependence, cigarettes, uncomplicated; B96.1 Klebsiella pneumoniae [K. pneumoniae] as the cause of diseases classified elsewhere; W01.0XXA Fall on same level from slipping, tripping and stumbling without subsequent striking against object, initial encounter; Y92.008 Other place in unspecified non-institutional (private) residence as the place of occurrence of the external cause; W06.XXXA Fall from bed, initial encounter; Y92.003 Bedroom of unspecified non-institutional (private) residence as the place of occurrence of the external cause; Z95.820 Peripheral vascular angioplasty status with implants and grafts

== ENCOUNTER 2020-07-05 13:06 | Emergency (ER) | payer MEDICARE ==
[~2020-07-05] VITALS: Ht 162.6 cm; Wt 60.0 kg
[~2020-07-05 13:06] MED LIST changes: +LORTAB 5/3255 MG PO; +TOPROL XL50 MG PO
[2020-07-05 14:45] LABS: HEMATOCRIT 42.1 % (37.0-47.0); HEMOGLOBIN 13.2 g/dl (12.0-16.0); IMMATURE GRANULOCYTES 0.5 % (0.0-5.0); MEAN CELL VOLUME 91.9 fL CALC (80.0-100.0); MEAN CORPUSCULAR HGB 28.8 pG CALC (26.0-32.0); MEAN CORPUSCULAR HGB CONC 31.4 g/dL CAL (32.0-36.0); NEUT# 9.8 thou/uL (2.00-7.15); RED BLOOD COUNT 4.58 mill/uL (4.20-5.60); RED CELL DISTRI WIDTH 15.1 % (11.5-15.5)
[2020-07-05] MEDS ORDERED: PRILOSEC20 MG/CAP PO (14:46)
[2020-07-05 15:07] LABS: ALBUMIN 3.6 g/dL (3.2-5.0); BILIRUBIN, TOTAL 0.5 mg/dL (0.0-1.4); CREATININE 1.2 mg/dL (0.5-1.0); POTASSIUM 3.9 mmol/l (3.5-5.1); TOTAL PROTEIN 6.8 g/dL (6.3-8.2)
[2020-07-05] MEDS ORDERED: DILTIAZEM60 MG PO ×2 (15:11→15:14)
[2020-07-05 15:16] VITALS: BP 156/79
== END 2020-07-05 15:18 | disposition home or self-care (01) ==
LOC: ED 13:06
PROVIDERS: Emergency Medicine
DX: I12.9 Hypertensive chronic kidney disease with stage 1 through stage 4 chronic kidney disease, or unspecified chronic kidney disease (principal); N18.4 Chronic kidney disease, stage 4 (severe); J44.9 Chronic obstructive pulmonary disease, unspecified; F17.200 Nicotine dependence, unspecified, uncomplicated; Z95.820 Peripheral vascular angioplasty status with implants and grafts

== ENCOUNTER 2020-09-30 | Emergency (ER) | payer MEDICARE ==
[~2020-09-30] MED LIST changes: +PRILOSEC20 MG/CAP PO
[2020-09-30 07:54] LABS: HEMATOCRIT 40.4 % (37.0-47.0); HEMOGLOBIN 12.6 g/dl (12.0-16.0); IMMATURE GRANULOCYTES 0.6 % (0.0-5.0); MEAN CELL VOLUME 89.8 fL CALC (80.0-100.0); MEAN CORPUSCULAR HGB CONC 31.2 g/dL CAL (32.0-36.0); NEUT# 12.08 thou/uL (2.00-7.15); RED BLOOD COUNT 4.5 mill/uL (4.20-5.60); RED CELL DISTRI WIDTH 15.3 % (11.5-15.5)
[2020-09-30 08:17] LABS: PROTHROMBIN TIME 10.2 SECONDS (9.0-12.5)
[2020-09-30 08:25] LABS: ALBUMIN 3.7 g/dL (3.2-5.0); BILIRUBIN, TOTAL 0.7 mg/dL (0.0-1.4); CREATININE 1.1 mg/dL (0.5-1.0); POTASSIUM 3.6 mmol/l (3.5-5.1); TOTAL PROTEIN 6.5 g/dL (6.3-8.2)
== END 2020-09-30 09:05 | disposition short-term general hospital (02) ==
PROVIDERS: Emergency Medicine
DX: S72.141A Displaced intertrochanteric fracture of right femur, initial encounter for closed fracture (principal); I12.9 Hypertensive chronic kidney disease with stage 1 through stage 4 chronic kidney disease, or unspecified chronic kidney disease; N18.4 Chronic kidney disease, stage 4 (severe); J44.9 Chronic obstructive pulmonary disease, unspecified; F17.200 Nicotine dependence, unspecified, uncomplicated; W18.30XA Fall on same level, unspecified, initial encounter; Y92.009 Unspecified place in unspecified non-institutional (private) residence as the place of occurrence of the external cause; Z95.820 Peripheral vascular angioplasty status with implants and grafts; Z20.822 Contact with and (suspected) exposure to COVID-19

== ENCOUNTER 2020-12-12 20:07 | Emergency (ER) | payer MEDICARE ==
[~2020-12-12] VITALS: Ht 162.6 cm; Wt 47.2 kg
[2020-12-12 21:33] LABS: HEMATOCRIT 34.9 % (37.0-47.0); HEMOGLOBIN 11.1 g/dl (12.0-16.0); IMMATURE GRANULOCYTES 1.1 % (0.0-5.0); MEAN CELL VOLUME 87.3 fL CALC (80.0-100.0); MEAN CORPUSCULAR HGB 27.8 pG CALC (26.0-32.0); MEAN CORPUSCULAR HGB CONC 31.8 g/dL CAL (32.0-36.0); NEUT# 17.9 thou/uL (2.00-7.15); RED CELL DISTRI WIDTH 14.7 % (11.5-15.5)
[2020-12-12 21:50] LABS: CREATININE 1.2 mg/dL (0.5-1.0); POTASSIUM 3.9 mmol/l (3.5-5.1); TOTAL PROTEIN 5.7 g/dL (6.3-8.2)
[2020-12-12 22:04] LABS: BILIRUBIN, TOTAL 0.4 mg/dL (0.0-1.4)
[2020-12-12 23:25] VITALS: BP 177/91
== END 2020-12-12 23:30 | disposition short-term general hospital (02) ==
LOC: ED 20:07
PROVIDERS: Emergency Medicine
DX: S72.142A Displaced intertrochanteric fracture of left femur, initial encounter for closed fracture (principal); I12.9 Hypertensive chronic kidney disease with stage 1 through stage 4 chronic kidney disease, or unspecified chronic kidney disease; N18.4 Chronic kidney disease, stage 4 (severe); J44.9 Chronic obstructive pulmonary disease, unspecified; F17.210 Nicotine dependence, cigarettes, uncomplicated; W01.0XXA Fall on same level from slipping, tripping and stumbling without subsequent striking against object, initial encounter; Y92.009 Unspecified place in unspecified non-institutional (private) residence as the place of occurrence of the external cause